=== PATIENT | female | born 1965 | race Caucasian/White ===

== ENCOUNTER 2016-08-06 17:46 | Emergency (ER) | payer OTHER, SELFPAY ==
[~2016-08-06 17:46] MED LIST: OMEGA 31 CAP; PROVENTIL HFA6.7 G1 INH
[2016-08-06] MEDS ORDERED: CHANTIX0.5 MG/TAB PO (18:56)
== END 2016-08-06 19:30 ==
LOC: EDMED 17:46
DX: S90.32XA Contusion of left foot, initial encounter (principal); Z87.891 Personal history of nicotine dependence; W22.01XA Walked into wall, initial encounter; Y92.019 Unspecified place in single-family (private) house as the place of occurrence of the external cause